=== PATIENT | male | born 1945 | race Caucasian/White ===

== ENCOUNTER 2016-07-25 12:21 | Observation (INO) | payer OTHER ==
[~2016-07-25] VITALS: Ht 175.3 cm; Wt 81.6 kg
[2016-07-25] MEDS ORDERED: SODIUM CHLORIDE 0.9% 1,000 ML ONE (14:49)
[2016-07-25 16:47] VITALS: BP_SYST 150; RESP 20; TEMP 97.9
[2016-07-25 17:01] VITALS: BP_SYST 166
[2016-07-25 17:02] VITALS: BMI 26.6
[2016-07-25] MEDS ORDERED: ONDANSETRON 4 MG VIAL IV PRN (17:15)
[2016-07-25] MEDS ORDERED: DOCUSATE SOD 100 MG CAP PO PRN (17:15)
[2016-07-25] MEDS ORDERED: NITROGLYCERIN SL 0.4 MG TAB SL PRN (17:15)
[2016-07-25] MEDS ORDERED: TEMAZEPAM 7.5 MG CAP PO PRN (17:15)
[2016-07-25] MEDS ORDERED: ACETAMINOPHEN 325 MG TAB PO PRN (17:15)
[2016-07-25] MEDS ORDERED: LORAZEPAM 0.5 MG TAB PO PRN (17:15)
[2016-07-25] MEDS ORDERED: NITROGLYCERIN 50 MG/250 ML IV PRN (17:15)
[2016-07-25] MEDS ORDERED: TRAMADOL 50 MG TAB PO PRN (17:15)
[2016-07-25] MEDS ORDERED: SALINE FLUSH 10 ML FLUSH PRN (17:15)
[2016-07-25] MEDS ORDERED: MORPHINE 2 MG/ML SYR IV PRN (17:15)
[2016-07-25] MEDS ORDERED: SODIUM CHLORIDE 0.9% 1,000 ML IV SCH (17:15)
[2016-07-25] MEDS ORDERED: SODIUM CHLORIDE 0.9% FLUSH BAG 500 ML IV PRN (17:15)
[2016-07-25] MEDS: SODIUM CHLORIDE 0.45% 1,000 ML IV SCH (19:35)
[2016-07-25 19:56] VITALS: BP_SYST 141; RESP 20; TEMP 97.7
[2016-07-25] MEDS: SALINE FLUSH 10 ML FLUSH SCH (20:00)
[2016-07-25 23:43] VITALS: BP_SYST 131; RESP 18; TEMP 98.3
[2016-07-26] VITALS (8 sets, daily range): BP systolic 114–152; RESP 18–24; TEMP 97.3–98.4
[2016-07-26] MEDS: ASPIRIN EC 81 MG TAB PO SCH (08:44)
[2016-07-26] MEDS: SALINE FLUSH 10 ML FLUSH SCH ×2 (08:45→22:03)
[2016-07-26] MEDS: LANSOPRAZOLE 30 MG SOLUTAB PO SCH ×2 (11:14→21:58)
[2016-07-26] MEDS: LISINOPRIL 5 MG TAB PO SCH (11:14)
[2016-07-26] MEDS: ISOSORBIDE MONO 60 MG TAB PO SCH (11:14)
[2016-07-26] MEDS: amLODIPine 10 MG TAB PO SCH (11:14)
[2016-07-26] MEDS: METOPROLOL TART 50 MG TAB PO SCH ×2 (11:14→21:58)
[2016-07-26] MEDS ORDERED: *PINK BRACELET XX ONE (12:10)
[2016-07-26] MEDS: SODIUM CHLORIDE 0.45% 1,000 ML IV SCH (15:32)
[2016-07-26] MEDS: *HOME MEDS IN MED CART XX SCH (20:00)
[2016-07-26] MEDS ORDERED: Atorvastatin 40 MG TAB PO SCH (21:00)
[2016-07-26] MEDS ORDERED: ASPIRIN 81 MG CHEW TAB PO SCH (21:00)
[2016-07-27 03:30] VITALS: BP_SYST 123; RESP 18; TEMP 97.9
[2016-07-27] MEDS: *HOME MEDS IN MED CART XX SCH ×2 (07:00→14:13)
[2016-07-27 07:29] VITALS: BP_SYST 149; RESP 18; TEMP 98.2
[2016-07-27] MEDS: ISOSORBIDE MONO 60 MG TAB PO SCH (08:28)
[2016-07-27] MEDS: LISINOPRIL 5 MG TAB PO SCH (08:28)
[2016-07-27] MEDS: ASPIRIN EC 81 MG TAB PO SCH (08:28)
[2016-07-27] MEDS: SALINE FLUSH 10 ML FLUSH SCH (08:28)
[2016-07-27] MEDS: amLODIPine 10 MG TAB PO SCH (08:28)
[2016-07-27] MEDS: LANSOPRAZOLE 30 MG SOLUTAB PO SCH (08:28)
[2016-07-27] MEDS: METOPROLOL TART 50 MG TAB PO SCH (08:28)
[2016-07-27 11:48] VITALS: BP_SYST 145; RESP 18; TEMP 97.5
[2016-07-27 13:33] VITALS: BP_SYST 145; RESP 18; TEMP 97.5
[2016-07-28] MEDS ORDERED: Furosemide 20 MG TAB PO SCH (09:00)
== END 2016-07-27 15:18 | disposition home or self-care (01) ==
LOC: ENRESERVDT → ENRESERVTM → ER 12:21 → EMR 15:03 → ENPENDDIS 15:03 → PCU2 16:46
PROVIDERS: ADMIT Internal Medicine Cardiovascular Disease; ATTEND Internal Medicine Cardiovascular Disease
CPT/HCPCS: 71010 ×2; 82947 ×2; 93005 ×2; 93306 ×2; 93880 ×2; 96360 ×2; 97799; 99284; G0378